=== PATIENT | female | born 1995 | race Hispanic/Latino ===

== ENCOUNTER 2024-09-26 11:26 | Emergency (ER) | payer OTHER ==
[~2024-09-26] VITALS: Ht 149.9 cm; Wt 74.4 kg
[2024-09-26 11:39] VITALS: TEMP 99.3
[2024-09-26 12:16] LABS: BASOPHILS % 0.5 % (0.0-1.0); EOSINOPHILS % 0.4 % (0.0-6.0); HEMATOCRIT 31.5 % (34.2-44.1); HEMOGLOBIN 10.3 g/dL (12.0-16.0); LYMPHOCYTES % 13.3 % (18.0-39.1); MEAN CORPUSCULAR HEMOGLOBIN 25.5 pg (28-32); MEAN CORPUSCULAR HGB CONC 32.7 g/dL (31-35); MONOCYTES # (AUTO) 0.5 (0.2-0.8); NEUTROPHILS # (AUTO) 5.7 (2.1-6.9); NEUTROPHILS % 78.5 % (38.7-80.0); PLATELET COUNT 328 x10e3/uL (140-360); RED BLOOD COUNT 4.04 x10e6/uL (3.6-5.1); RED CELL DISTRIBUTION WIDTH 16.5 % (11.7-14.4)
[2024-09-26] MEDS: FAMOTIDINE 20 MG/2 ML VIAL IV STA (12:23)
[2024-09-26] MEDS: SODIUM CHLORIDE 0.9% 1000ML 1,000 ML IV ONE (12:24)
[2024-09-26] MEDS: DONNATAL/LIDOCAINE/MAALOX 30 ML SUSP PO ONE (12:24)
[2024-09-26 12:54] LABS: ALANINE AMINOTRANSFERASE 16 IU/L (0-55); ALBUMIN 4.3 g/dL (3.5-5.0); ALBUMIN/GLOBULIN RATIO 1.4 (0.8-2.0); ALKALINE PHOSPHATASE 98 IU/L (40-150); BILIRUBIN,TOTAL 0.3 mg/dL (0.2-1.2); BLOOD UREA NITROGEN 10 mg/dL (7-26); BUN/CREATININE RATIO 15 (6-25); CALCIUM 8.9 mg/dL (8.4-10.2); CARBON DIOXIDE 20 mmol/L (22-29); CHLORIDE 107 mmol/L (98-107); CREATININE, SERUM 0.65 mg/dL (0.57-1.11); EST GLOMERULAR FILTRATION RATE 123 ML/MIN (>=60); GLUCOSE 114 mg/dL (74-118); LIPASE 16 U/L (8-78); SODIUM 139 mmol/L (136-145); TOTAL PROTEIN 7.3 g/dL (6.5-8.1)
[2024-09-26 14:00] VITALS: PULSE 92; RESP 18
[2024-09-26] MEDS: MAGNESIUM SULFATE 2GM/50ML 50 ML IV ONE (14:10)
[2024-09-26] MEDS: POTASSIUM CHLORIDE 20 MEQ TAB CR PO STA (14:10)
[2024-09-26] MEDS ORDERED: ONDANSETRON ODT4 MG PO (15:54)
[2024-09-26 16:05] VITALS: BP 109/64; PULSE 65; RESP 16; O2SAT 100
== END 2024-09-26 16:07 | disposition home or self-care (01) ==
LOC: ER 11:53
DX: R00.2 Palpitations (principal); R10.13 Epigastric pain; R11.2 Nausea with vomiting, unspecified; E87.6 Hypokalemia; F41.9 Anxiety disorder, unspecified
CPT/HCPCS: 36415; 80053; 83690; 83735; 84484; 84702; 85025; 93005; 99283; J3475; J7030

== ENCOUNTER 2024-10-23 12:02 | Emergency (ER) | payer OTHER ==
[~2024-10-23] VITALS: Ht 149.9 cm; Wt 74.4 kg
[~2024-10-23 12:02] MED LIST: ONDANSETRON ODT4 MG PO
[2024-10-23 12:05] VITALS: PULSE 84; RESP 16; TEMP 98.4; O2SAT 100
== END 2024-10-23 12:30 | disposition home or self-care (01) ==
LOC: ER 12:25
DX: R00.2 Palpitations (principal); R07.89 Other chest pain; T43.615A Adverse effect of caffeine, initial encounter; F41.9 Anxiety disorder, unspecified
CPT/HCPCS: 93005; 99282